=== PATIENT | female | born 1955 | race Caucasian/White ===

== ENCOUNTER → 2018-12-18 | Outpatient (CLI) | payer BC ==
--- NOTE | 2018-12-18 16:14 | KCIC ---
EXAM: MRI pelvis without IV contrast MRI right hip without IV contrast. DATE: 12/18/2018 3:30 PM CLINICAL INDICATION: Right hip pain, osteopenia, injury one week ago. COMPARISON: None. TECHNIQUE: The plantar, multisequence MR imaging of the right hip and pelvis was performed without IV contrast. FINDINGS: Nondisplaced fractures of the right superior and inferior pubic ramus as well as the bilateral sacral alar are seen with associated marrow edema. Moderate edema is seen within the short adductors as well as the adductor longus from strain. Associated periosteal edema is seen suggesting periosteal reaction/callus formation Tendinous attachments of the gluteus medius and minimus are intact. No significant trochanteric bursitis. The hamstring and iliopsoas tendinous attachments are also intact. The direct and indirect heads of the rectus femoris are normal in signal and morphology, intact. On this limited evaluation on either no definite pelvic mass, lymphadenopathy or ascites. IMPRESSION: 1. Nondisplaced right superior and inferior pubic rami fractures as well as bilateral sacral alar fractures are seen. 2. Low-intermediate grade strain of the right hip adductors Electronically signed by: Ru Painting MD (12/18/2018 4:11 PM) [id number]
== END | disposition home or self-care (01) ==
LOC: KCIC MRI 14:12
PROVIDERS: ATTEND Physician Assistant
DX: S32.591A Other specified fracture of right pubis, initial encounter for closed fracture (principal); M85.88 Other specified disorders of bone density and structure, other site; X58.XXXA Exposure to other specified factors, initial encounter; Y93.89 Activity, other specified; Y92.89 Other specified places as the place of occurrence of the external cause; Y99.8 Other external cause status
CPT/HCPCS: 72195; 73721